=== PATIENT | male | born 1930 | race Caucasian/White ===

== ENCOUNTER 2017-01-08 09:25 | Inpatient (IN) | payer OTHER ==
[~2017-01-08] VITALS: Ht 170.2 cm; Wt 89.2 kg
[2017-01-08] VITALS (7 sets, daily range): BP systolic 88–120; BP diastolic 43–54
[~2017-01-08 09:25] MED LIST: ALBU2.5V5 NEB; ASPI81TA2 PO; DOXA8TAB59 PO; FINA5TAB4 PO; GLIP5TAB10 PO; INSU100I17 SQ; LISI2.5T PO; MEMA5TAB PO; METF10002 PO; MULTIVITAMIN; SIMV20TA3 PO; [UNRECOGNIZED DRUG - OTHER]; eucerin cream
--- NOTE | 2017-01-08 09:41 | EKG ---
[facility] [address] [place] [address] Test Date: 2017-01-08 Test Time: 09:33:48 Pat Name: RAMU GO Department: Room: Gender: M Agile Test Lead: : 1930 Requested By: IMAN BLACK Order Number: [id number] Reading MD: Measurements Intervals [place] Rate: 99 P: -34 [place]: 142 QRS: 37 QRSD: 124 T: 16 QT: 354 QTc: 460 Interpretive Statements SINUS ARRHYTHMIA RIGHT BUNDLE BRANCH BLOCK RVH WITH REPOLARIZATION ABNORMALITY ABNORMAL ECG RI6.01 No previous ECG available for comparison
[2017-01-08] MEDS ORDERED: IPRATRPIUM/ALBUTEROL 0.5/2.5MG 3 ML NEBU. NEB ONE (09:45)
[2017-01-08] MEDS ORDERED: IV NORMAL SALINE 1000ML BAG 1,000 ML IV ONE ×2 (09:45→10:15)
--- NOTE | 2017-01-08 09:46 | PHYS DOC ---
Past Medical History Past Medical History: Anxiety, Dementia, Depression, Diabetes-Type II, High Cholesterol, Hypertension, Other Additional Past Medical Histor: weakness, bronchospasm Past Surgical History: No Surgical History Alcohol Use: None Drug Use: None Adult General Chief Complaint Chief Complaint: WEAKNESS/GENERALIZED HPI HPI Patient is a 86 year old male who presents with was weakness. According to patient and the nursing facility we started fluid poorly last night and vomited once. This morning he could not feed himself and was dropping everything. The patient presents with johnson in his mouth. He denies any chest pain shortness of breath fevers or chills, or abdominal pain. He is satting on 4 L satting 95% and hypotensive with systolics in the 70s and 80s. According facility he is DNR. He has a past medical history of hypertension, diabetes type 2, previous stroke, depression, anxiety, and incontinence and peripheral vascular disease. According to family he's been having nausea vomiting and several episodes of diarrhea last night. Review of Systems Review of Systems Constitutional: Denies fever or chills [] Eyes: Denies change in visual acuity, redness, or eye pain [] HENT: Denies nasal congestion or sore throat [] Respiratory: Denies cough or shortness of breath [] Cardiovascular: No additional information not addressed in HPI [] GI: Denies abdominal pain, nausea, vomiting, bloody stools or diarrhea [] : Denies dysuria or hematuria [] Musculoskeletal: Denies back pain or joint pain [] Integument: Denies rash or skin lesions [] Neurologic: Denies headache, focal weakness or sensory changes [] Endocrine: Denies polyuria or polydipsia [] Current Medications Current Medications Current Medications Medications (Trade) Dose Ordered Sig/Christina Start Time Stop Time Status Last Admin Dose Admin Albuterol/ Ipratropium 3 ml 3 ml 1X ONCE 01/08/17 09:45 01/08/17 09:46 DC 01/08/17 09:53 3 ML Sodium Chloride (Iv Sodium Chloride 0.9% 1000ml Bag) 1,000 ml @ 1,000 mls/hr 1X ONCE 01/08/17 10:15 01/08/17 11:14 DC 01/08/17 10:09 1,000 MLS/HR Allergies Allergies Allergies Coded Allergies Type Severity Reaction Last Updated Verified No Known Drug Allergies 10/21/14 No Physical Exam Physical Exam Constitutional: Well developed, well nourished, no acute distress, non-toxic appearance. [] HENT: Normocephalic, atraumatic, bilateral external ears normal, oropharynx moist, no oral exudates, nose normal, but some johnson and posterior pharynx. [] Eyes: PERRLA, EOMI, conjunctiva normal, no discharge. [] Neck: Normal range of motion, no tenderness, supple, no stridor. [] Cardiovascular: Tachycardic with regular rhythm no murmur [] Lungs & Thorax: Coarse bilaterally with decreased breath sounds Abdomen: Bowel sounds normal, soft, no tenderness, no masses, no pulsatile masses. Ventral hernia noted Skin: Warm, dry, no erythema, no rash. [] Back: No tenderness, no CVA tenderness. [] Extremities: No tenderness, no cyanosis, no clubbing, ROM intact, no edema. [] Neurologic: Alert and interactive, normal motor function, normal sensory function, no focal deficits noted. [] Current Patient Data Vital Signs Vital Signs Date Time Temp Pulse Resp B/P Pulse Ox O2 Delivery O2 Flow Rate FiO2 01/08/17 11:12 99 112/56 94 Nasal Cannula 4 01/08/17 09:25 97.7 26 97.7 Lab Values Laboratory Tests Test 01/08/17 09:30 01/08/17 09:32 White Blood Count 17.5x10^3/uL (4.0-11.0) H Red Blood Count 4.93x10^6/uL (4.30-5.70) Hemoglobin 13.0g/dL (13.0-17.5) Hematocrit 39.9% (39.0-53.0) Mean Corpuscular Volume 81fL (79-100) Mean Corpuscular Hemoglobin 26pg (25-35) Mean Corpuscular Hemoglobin Concent 33g/dL (31-37) Red Cell Distribution Width 16.5% (11.5-14.5) H Platelet Count 268x10^3/uL (140-400) Neutrophils (%) (Auto) 95% (31-73) H Lymphocytes (%) (Auto) 1% (24-48) L Monocytes (%) (Auto) 5% (0-9) Eosinophils (%) (Auto) 0% (0-3) Basophils (%) (Auto) 0% (0-3) Neutrophils # (Auto) 16.6x10^3uL (1.8-7.7) H Lymphocytes # (Auto) 0.1x10^3/uL (1.0-4.8) L Monocytes # (Auto) 0.8x10^3/uL (0.0-1.1) Eosinophils # (Auto) 0.0x10^3/uL (0.0-0.7) Basophils # (Auto) 0.0x10^3/uL (0.0-0.2) Segmented Neutrophils % 66% (35-66) Band Neutrophils % 30% (0-9) H Lymphocytes % 1% (24-48) L Monocytes % 3% (0-10) Platelet Estimate Adequate (ADEQUATE) Anisocytosis Present Sodium Level 140mmol/L (136-145) Potassium Level 4.6mmol/L (3.5-5.1) Chloride Level 103mmol/L (98-107) Carbon Dioxide Level 22mmol/L (21-32) Anion Gap 15 (6-14) H Blood Urea Nitrogen 30mg/dL (8-26) H Creatinine 1.7mg/dL (0.7-1.3) H Estimated GFR (Cockcroft-Gault) 38.6 BUN/Creatinine Ratio 18 (6-20) Glucose Level 298mg/dL (70-99) H Lactic Acid Level 4.2mmol/L (0.4-2.0) *H Calcium Level 8.9mg/dL (8.5-10.1) Total Bilirubin 0.4mg/dL (0.2-1.0) Aspartate Amino Transferase (AST) 14U/L (15-37) L Alanine Aminotransferase (ALT) 19U/L (16-63) Alkaline Phosphatase 64U/L (46-116) Creatine Kinase 48U/L (39-308) Creatine Kinase MB (Mass) 0.9ng/mL (0.0-3.6) Creatine Kinase MB Relative Index % (0-4) Troponin I Quantitative < 0.017ng/mL (0.000-0.055) Total Protein 7.5g/dL (6.4-8.2) Albumin 3.1g/dL (3.4-5.0) L Albumin/Globulin Ratio 0.7 (1.0-1.7) L O2 Saturation 93% (92-99) Arterial Blood pH 7.32 (7.35-7.45) L Arterial Blood pCO2 at Patient Temp 35mmHg (35-46) Arterial Blood pO2 at Patient Temp 75mmHg (65-108) Arterial Blood HCO3 17mmol/L (21-28) L Arterial Blood Base Excess -8mmol/L (-3-3) L FiO2 36.0 Laboratory Tests 01/08/17 09:30 Laboratory Tests 01/08/17 09:30 EKG EKG EKG shows sinus beats per minute with right bundle branch morphology, no ST elevations appreciated, normal axis, QT C4 60 ms, as interpreted by me. Radiology/Procedures Radiology/Procedures [facility] [address] [place] [address] IMAGING REPORT Signed PATIENT: RAMU GO ACCOUNT: [id number] : 1930 LOCATION: ER AGE: 86 SEX: M EXAM STATUS: PRE ER ORD. PHYSICIAN: IMAN BLACK MD REASON: hypoxia PROCEDURE: PORTABLE CHEST 1V Portable chest, 01/08/2017: History: Hypoxia, low blood pressure Comparison is made to a study from 10/23/2014. The heart is at the upper limits of normal in size. There is calcific plaquing and tortuosity of the thoracic aorta. The pulmonary vascularity now appears to be congested. There is scarring over the pulmonary apices. There appear to be a few scattered parenchymal scars. A density in the left lateral costophrenic angle is probably due to scarring and/or a prominent epicardial fat pad. A small amount of pleural fluid is less likely. The bony structures are demineralized. IMPRESSION: 1. Borderline cardiomegaly and aortic atherosclerosis. 2. Mild vascular congestion DICTATED and SIGNED BY: ANALIA ABREU MD DATE: 01/08/17 0958 CC: MICHEL TOVAR; IMAN BLACK MD ~ Impressions: Hypotension Dehydration vomiting diarrhea Course & Med Decision Making Course & Med Decision Making Pertinent Labs and Imaging studies reviewed. (See chart for details) You presented with systolic blood pressures in the 70s. He received 2 L normal saline we does have an elevated lactic acid and mild acidosis. We will repeat these labs and admit to . Dr. Villarreal is requesting ID consultation. Patient is in stable condition this time. Admitted to the floor. I spoke with the patient and family and they have agreed to be DNR. Dragon Disclaimer Dragon Disclaimer This electronic medical record was generated, in whole or in part, using a voice recognition dictation system. Departure Departure Referrals: MICHEL TOVAR (PCP) IMAN BLACK MD Jan 08, 2017 09:46
--- NOTE | 2017-01-08 10:04 | RAD ---
Portable chest, 01/08/2017: History: Hypoxia, low blood pressure Comparison is made to a study from 10/23/2014. The heart is at the upper limits of normal in size. There is calcific plaquing and tortuosity of the thoracic aorta. The pulmonary vascularity now appears to be congested. There is scarring over the pulmonary apices. There appear to be a few scattered parenchymal scars. A density in the left lateral costophrenic angle is probably due to scarring and/or a prominent epicardial fat pad. A small amount of pleural fluid is less likely. The bony structures are demineralized. IMPRESSION: 1. Borderline cardiomegaly and aortic atherosclerosis. 2. Mild vascular congestion
[2017-01-08 10:14] LABS: CALCIUM 8.9 mg/dL (8.5-10.1); CREATININE 1.7 mg/dL (0.7-1.3); GFR 38.6; POTASSIUM 4.6 mmol/L (3.5-5.1)
[2017-01-08 10:20] LABS: ALBUMIN 3.1 g/dL (3.4-5.0); ALBUMIN/GLOBULIN RATIO 0.7 (1.0-1.7); TOTAL BILIRUBIN 0.4 mg/dL (0.2-1.0); TOTAL PROTEIN 7.5 g/dL (6.4-8.2)
[2017-01-08 10:22] LABS: BASO % 0 % (0-3); CKMB MASS 0.9 ng/mL (0.0-3.6); CREATINE KINASE 48 U/L (39-308); EOS % 0 % (0-3); HEMATOCRIT 39.9 % (39.0-53.0); LYMPH # 0.1 x10^3/uL (1.0-4.8); LYMPH % 1 % (24-48); MEAN CORPUSCULAR HEMOGLOBIN 26 pg (25-35); MEAN CORPUSCULAR HGB CONC 33 g/dL (31-37); MEAN CORPUSCULAR VOLUME 81 fL (79-100); MONO % 5 % (0-9); NEUT % 95 % (31-73); PLATELET COUNT 268 x10^3/uL (140-400); RED BLOOD COUNT 4.93 x10^6/uL (4.30-5.70); RED CELL DISTRIBUTION WIDTH 16.5 % (11.5-14.5); WHITE BLOOD COUNT 17.5 x10^3/uL (4.0-11.0)
[2017-01-08 10:45] LABS: HCO3 ABG 17 mmol/L (21-28); PCO2 ABG 35 mmHg (35-46); PH ABG 7.32 (7.35-7.45); PO2 ABG 75 mmHg (65-108); SAT O2 ABG 93 % (92-99)
[2017-01-08] MEDS ORDERED: ONDANSETRON PF 4 MG/2 ML VIAL. IV PRN (12:15)
[2017-01-08 12:20] LABS: BILIRUBIN,URINE NEGATIVE (NEG); GLUCOSE,URINE 250 mg/dL (NEG); NITRITE,URINE POSITIVE (NEG); PROTEIN,URINE 30 mg/dL (NEG-TRACE); UROBILINOGEN,URINE 0.2 mg/dL (0.2 mg/dL)
[2017-01-08] MEDS ORDERED: VANCOMYCIN 1.25 GM in IV NORMAL SALINE 250ML 250 ML IV ONE (12:30)
--- NOTE | 2017-01-08 12:31 | PDOC ---
Infectious Disease Note Vital Sign Vital Signs Vital Signs Date Time Temp Pulse Resp B/P Pulse Ox O2 Delivery O2 Flow Rate FiO2 01/08/17 11:36 101 112/70 90 Nasal Cannula 4 01/08/17 09:25 97.7 26 97.7 Labs Lab Laboratory Tests Test 01/08/17 09:30 01/08/17 09:32 White Blood Count 17.5x10^3/uL (4.0-11.0) Red Blood Count 4.93x10^6/uL (4.30-5.70) Hemoglobin 13.0g/dL (13.0-17.5) Hematocrit 39.9% (39.0-53.0) Mean Corpuscular Volume 81fL (79-100) Mean Corpuscular Hemoglobin 26pg (25-35) Mean Corpuscular Hemoglobin Concent 33g/dL (31-37) Red Cell Distribution Width 16.5% (11.5-14.5) Platelet Count 268x10^3/uL (140-400) Neutrophils (%) (Auto) 95% (31-73) Lymphocytes (%) (Auto) 1% (24-48) Monocytes (%) (Auto) 5% (0-9) Eosinophils (%) (Auto) 0% (0-3) Basophils (%) (Auto) 0% (0-3) Neutrophils # (Auto) 16.6x10^3uL (1.8-7.7) Lymphocytes # (Auto) 0.1x10^3/uL (1.0-4.8) Monocytes # (Auto) 0.8x10^3/uL (0.0-1.1) Eosinophils # (Auto) 0.0x10^3/uL (0.0-0.7) Basophils # (Auto) 0.0x10^3/uL (0.0-0.2) Sodium Level 140mmol/L (136-145) Potassium Level 4.6mmol/L (3.5-5.1) Chloride Level 103mmol/L (98-107) Carbon Dioxide Level 22mmol/L (21-32) Anion Gap 15 (6-14) Blood Urea Nitrogen 30mg/dL (8-26) Creatinine 1.7mg/dL (0.7-1.3) Estimated GFR (Cockcroft-Gault) 38.6 BUN/Creatinine Ratio 18 (6-20) Glucose Level 298mg/dL (70-99) Lactic Acid Level 4.2mmol/L (0.4-2.0) Calcium Level 8.9mg/dL (8.5-10.1) Total Bilirubin 0.4mg/dL (0.2-1.0) Aspartate Amino Transf (AST/SGOT) 14U/L (15-37) Alanine Aminotransferase (ALT/SGPT) 19U/L (16-63) Alkaline Phosphatase 64U/L (46-116) Creatine Kinase 48U/L (39-308) Creatine Kinase MB (Mass) 0.9ng/mL (0.0-3.6) Creatine Kinase MB Relative Index % (0-4) Total Protein 7.5g/dL (6.4-8.2) Albumin 3.1g/dL (3.4-5.0) Albumin/Globulin Ratio 0.7 (1.0-1.7) O2 Saturation 93% (92-99) Arterial Blood pH 7.32 (7.35-7.45) Arterial Blood pCO2 at Patient Temp 35mmHg (35-46) Arterial Blood pO2 at Patient Temp 75mmHg (65-108) Arterial Blood HCO3 17mmol/L (21-28) Arterial Blood Base Excess -8mmol/L (-3-3) FiO2 36.0 Objective Assessment N/V/D, gastroenteritis Leukocytosis Lactic acidosis/sepsis Dementia Encephalopathy ADELE Plan Plan of Care fluids vanc x 1, zosyn check cultures supportive care d/w family OLY CLARK MD Jan 08, 2017 12:31
[2017-01-08 12:36] LABS: BACTERIA,URINE MODERATE /HPF (0-FEW); RBC,URINE OCC /HPF (0-2); WBC,URINE 20-40 /HPF (0-4)
[2017-01-08 12:58] LABS: CALCIUM 8.1 mg/dL (8.5-10.1); CREATININE 1.9 mg/dL (0.7-1.3); GFR 33.9; POTASSIUM 4.8 mmol/L (3.5-5.1)
[2017-01-08 13:11] LABS: ANISOCYTOSIS PRESENT; PLT ESTIMATE ADEQUATE (ADEQUATE)
[2017-01-08] MEDS: PIPERACILLIN/TAZOBACTAM 3.375 GM in IV NORMAL SALINE 50ML 50 ML IV SCH ×3 (16:32→23:24)
[2017-01-08] MEDS ORDERED: MEMA21CA PO (17:03)
[2017-01-08] MEDS ORDERED: ACET325T9 PO (17:03)
[2017-01-08] MEDS ORDERED: IPRA3AMP NEB (17:03)
[2017-01-08] MEDS ORDERED: MULT-245 PO (17:03)
[2017-01-08] MEDS ORDERED: ATOR10TA60 PO (17:03)
[2017-01-08] MEDS ORDERED: LORA10TA68 PO (17:03)
[2017-01-08] MEDS ORDERED: INSU100V13 SQ (17:03)
[2017-01-08] MEDS ORDERED: CLOP75TA PO (17:03)
[2017-01-08] MEDS ORDERED: SERT25TA4 PO (17:03)
[2017-01-08] MEDS ORDERED: ASPI-482 PO (17:03)
--- NOTE | 2017-01-08 17:32 | ACF ---
Admission Forms Criteria DEHYDRATION Clinical Indications for Admission to Inpatient Care (Place 'X' for any and all applicable criteria): Admission is indicated for ANY ONE of the following (1)(2)(3)(4)(5): [X]I. Inpatient admission required rather than observation care (see Dehydration: Observation Care guideline as appropriate) because of ANY ONE of the following: [ ]a) Vomiting that is severe or persistent [ ]b) Severe electrolyte abnormalities requiring inpatient care [ ]c) Hemodynamic instability [ ]d) IV fluid to replace significant ongoing losses (greater than 3 L/m2 per day (10) (11) [ ]e) Parenteral nutrition regimen that must be implemented on inpatient basis [X]f) Other condition,treatment or monitoring requiring inpatient admission [ ]II. Serious cause for dehydration requiring acute hospitalization (eg, bowel obstruction, increased intracranial pressure, infectious cause) Extended stay beyond goal length of stay may be needed for(1)(3 )(4)(17): [ ]a) Chronic severe dehydration [ ]b) Persistent vital sign changes, severe electrolyte imbalance, or diagnosed cause of dehydration that requires continued hospitalization (eg, bowel obstruction, increased intracranial pressure) [ ]c) Older patients (65 years or older) [ ]d) Severe comorbid illness (eg, renal failure, heart failure, poorly controlled diabetes) The original [employer] content created by [employer] has been revised. The portions of the content which have been revised are identified through the use of italic text or in bold, and [facility] has neither reviewed nor approved the modified material. All other unmodified content is copyright [employer]. Please see references footnoted in the original [employer] edition 2016 Admission Criteria Met?: Yes VAISHALI IVAN Jan 08, 2017 17:32
[2017-01-08] MEDS ORDERED: ACETAMINOPHEN 325 MG TABLET. PO PRN (17:45)
[2017-01-08] MEDS ORDERED: ALBUTEROL SULFATE 2.5 MG/3 ML NEBU. NEB PRN (17:45)
[2017-01-08] MEDS ORDERED: DEXTROSE 50% 25 GM / 50ML DISP.SYRIN. IV PRN (17:45)
[2017-01-08] MEDS: INSULIN ASPART 300 UNITS/3 ML INSULN.PEN SQ SCH (18:53)
[2017-01-08] MEDS: ATORVASTATIN CALCIUM 10 MG TABLET. PO SCH (21:24)
[2017-01-08] MEDS: MEMANTINE 10 MG TABLET. PO SCH (21:24)
[2017-01-08] MEDS: INSULIN DETEMIR 300 UNITS/3 ML INSULN.PEN. SQ SCH (21:32)
--- NOTE | 2017-01-08 23:29 | CONS ---
DATE OF CONSULTATION: 01/08/2017 REQUESTING PHYSICIAN: Dr. Gonzalez. REASON FOR CONSULTATION: Sepsis. HISTORY OF PRESENT ILLNESS: This is an 86-year-old gentleman, who is a [facility] resident was mild dementia, who is not able to walk from stroke, who presented with nausea, vomiting and diarrhea of 1-day duration. The patient has been very weak, lethargic, has change in mental status, has leukocytosis and lactic acid up to 4.2, BUN 30, creatinine 1.7. The patient has been in the ER and I was called by ER physician for a consult. I came down to see in the ER the, family at the bedside, and son. No other information available other than nausea, vomiting and diarrhea. There was no fever noted and normally he sharp ____ right now he is not sharp. PAST MEDICAL HISTORY: Positive for diabetes, hypertension, hyperlipidemia, anxiety, depression, CVA with left-sided weakness and listed as dementia, although family denies him having dementia. SOCIAL HISTORY: Negative for smoking, alcohol or illicit drug use. ALLERGIES: No known drug allergies. CURRENT MEDICATIONS: Reviewed. The patient has not received any antibiotics. REVIEW OF SYSTEMS: As per HPI, all other systems reviewed are negative. PHYSICAL EXAMINATION: GENERAL: Alert, but not oriented gentleman, not in distress. VITAL SIGNS: Stable. The patient does have a blood pressure of 76 systolic. HEENT: NAD. NECK: Supple, no JVP, no lymphadenopathy. LUNGS: Clear. HEART: S1, S2 regular. ABDOMEN: Benign. EXTREMITIES: No edema or cyanosis. SKIN: Unremarkable. NEUROLOGIC: The patient is neurologically awake, but not appropriate and he has left-sided weakness. LABORATORY DATA: White count is 17.5, BUN 30, creatinine 1.7. Lactic acid 4.2. Urinalysis is pending. Chest x-ray is not showing any acute changes right now. IMPRESSION: 1. Sepsis. 2. Nausea, vomiting, diarrhea. 3. Lactic acidosis. 4. Leukocytosis. 5. Encephalopathy. 6. Dementia. 7. Acute kidney injury. PLAN: Recommend fluids, vancomycin x 1, Zosyn. We will check cultures. Supportive care. We will check UA with NETWORK SYSTEMS INTEGRATOR if indicated. Discussion with family done. Thank you very much, Dr. Gonzalez, for giving me the opportunity to participate in this patient's care. OLY CLARK MD DR: GARY/jose JOB#: [id number] / [id number]
[2017-01-09] VITALS (8 sets, daily range): BP systolic 99–150; BP diastolic 36–63
[2017-01-09 03:51] LABS: ALBUMIN 2.7 g/dL (3.4-5.0); ALBUMIN/GLOBULIN RATIO 0.7 (1.0-1.7); CALCIUM 7.8 mg/dL (8.5-10.1); CREATININE 1.8 mg/dL (0.7-1.3); GFR 36.1; POTASSIUM 4.6 mmol/L (3.5-5.1); TOTAL BILIRUBIN 0.4 mg/dL (0.2-1.0); TOTAL PROTEIN 6.4 g/dL (6.4-8.2)
[2017-01-09 04:02] LABS: BASO # 0.1 x10^3/uL (0.0-0.2); BASO % 0 % (0-3); EOS % 0 % (0-3); HEMATOCRIT 33.7 % (39.0-53.0); HEMOGLOBIN 10.6 g/dL (13.0-17.5); LYMPH # 0.4 x10^3/uL (1.0-4.8); LYMPH % 3 % (24-48); MEAN CORPUSCULAR HEMOGLOBIN 26 pg (25-35); MEAN CORPUSCULAR HGB CONC 31 g/dL (31-37); MEAN CORPUSCULAR VOLUME 83 fL (79-100); MONO % 8 % (0-9); NEUT % 89 % (31-73); PLATELET COUNT 233 x10^3/uL (140-400); RED BLOOD COUNT 4.05 x10^6/uL (4.30-5.70); RED CELL DISTRIBUTION WIDTH 16.8 % (11.5-14.5); WHITE BLOOD COUNT 12.2 x10^3/uL (4.0-11.0)
[2017-01-09] MEDS: PIPERACILLIN/TAZOBACTAM 3.375 GM in IV NORMAL SALINE 50ML 50 ML IV SCH ×3 (05:59→18:42)
[2017-01-09] MEDS ORDERED: METFORMIN 1,000 MG TABLET PO SCH (08:00)
[2017-01-09] MEDS: INSULIN ASPART 300 UNITS/3 ML INSULN.PEN SQ SCH ×3 (08:00→18:46)
[2017-01-09] MEDS ORDERED: CLOPIDOGREL BISULFATE 75 MG TABLET PO SCH (09:00)
[2017-01-09] MEDS: CETIRIZINE HCL 10 MG TABLET. PO SCH (10:23)
[2017-01-09] MEDS: FINASTERIDE 5 MG TABLET PO SCH (10:23)
[2017-01-09] MEDS: SERTRALINE 25 MG TABLET. PO SCH (10:24)
[2017-01-09] MEDS: ASPIRIN 81 MG TAB.CHEW PO SCH (10:24)
[2017-01-09] MEDS: MEMANTINE 10 MG TABLET. PO SCH ×2 (10:25→20:49)
--- NOTE | 2017-01-09 11:30 | PDOC ---
Infectious Disease Note Subjective Subjective Feeling ok wants the door left open, Denies pain Fever Tmax 100.7 ROS ROS GEN: Denies chills, sweats CV: Denies chest pain RESP: Denies shortness of air, cough GI: Denies n/v/d NEURO: Denies confusion, dizziness Vital Sign Vital Signs Vital Signs Date Time Temp Pulse Resp B/P Pulse Ox O2 Delivery O2 Flow Rate FiO2 01/09/17 07:00 97.9 76 18 114/52 95 Nasal Cannula 4.0 97.9 Physical Exam PHYSICAL EXAM GENERAL: Alert, in bed, NAD HEENT: OC/OP dry NECK: Supple LUNGS: Clear HEART: S1S2, no gallop, no murmur ABD: Soft, NT, BS present EXT: No edema, no cyanosis MAINTENANCE MILLWRIGHT: Alert, oriented to place, follows commands SKIN: No rash IV: ok Labs Lab Laboratory Tests Test 01/08/17 12:00 01/08/17 12:40 01/08/17 16:22 01/08/17 17:16 Urine Collection Type U cath Urine Color Yellow Urine Clarity Cloudy Urine pH 6.0 Urine Specific [place] 1.015 Urine Protein 30mg/dL (NEG-TRACE) Urine Glucose (UA) 250mg/dL (NEG) Urine Ketones (Stick) 40mg/dL (NEG) Urine Blood Small (NEG) Urine Nitrite Positive (NEG) Urine Bilirubin Negative (NEG) Urine Urobilinogen Dipstick 0.2mg/dL (0.2 mg/dL) Urine Leukocyte Esterase Large (NEG) Urine RBC Occ/HPF (0-2) Urine WBC 20-40/HPF (0-4) Urine Squamous Epithelial Cells None/LPF Urine Bacteria Moderate/HPF (0-FEW) Urine Hyaline Casts Occasional/HPF Sodium Level 138mmol/L (136-145) Potassium Level 4.8mmol/L (3.5-5.1) Chloride Level 105mmol/L (98-107) Carbon Dioxide Level 19mmol/L (21-32) Anion Gap 14 (6-14) Blood Urea Nitrogen 32mg/dL (8-26) Creatinine 1.9mg/dL (0.7-1.3) Estimated GFR (Cockcroft-Gault) 33.9 Glucose Level 282mg/dL (70-99) Lactic Acid Level 5.4mmol/L (0.4-2.0) 3.6mmol/L (0.4-2.0) Calcium Level 8.1mg/dL (8.5-10.1) Glucose (Fingerstick) 223mg/dL (70-99) Test 01/08/17 17:40 01/08/17 20:30 01/09/17 00:30 01/09/17 02:00 Troponin I Quantitative < 0.017ng/mL (0.000-0.055) Glucose (Fingerstick) 233mg/dL (70-99) Sodium Level 141mmol/L (136-145) Potassium Level 4.6mmol/L (3.5-5.1) Chloride Level 106mmol/L (98-107) Carbon Dioxide Level 22mmol/L (21-32) Anion Gap 13 (6-14) Blood Urea Nitrogen 37mg/dL (8-26) Creatinine 1.8mg/dL (0.7-1.3) Estimated GFR (Cockcroft-Gault) 36.1 BUN/Creatinine Ratio 21 (6-20) Glucose Level 228mg/dL (70-99) Calcium Level 7.8mg/dL (8.5-10.1) Total Bilirubin 0.4mg/dL (0.2-1.0) Aspartate Amino Transf (AST/SGOT) 16U/L (15-37) Alanine Aminotransferase (ALT/SGPT) 18U/L (16-63) Alkaline Phosphatase 49U/L (46-116) Total Protein 6.4g/dL (6.4-8.2) Albumin 2.7g/dL (3.4-5.0) Albumin/Globulin Ratio 0.7 (1.0-1.7) White Blood Count 12.2x10^3/uL (4.0-11.0) Red Blood Count 4.05x10^6/uL (4.30-5.70) Hemoglobin 10.6g/dL (13.0-17.5) Hematocrit 33.7% (39.0-53.0) Mean Corpuscular Volume 83fL (79-100) Mean Corpuscular Hemoglobin 26pg (25-35) Mean Corpuscular Hemoglobin Concent 31g/dL (31-37) Red Cell Distribution Width 16.8% (11.5-14.5) Platelet Count 233x10^3/uL (140-400) Neutrophils (%) (Auto) 89% (31-73) Lymphocytes (%) (Auto) 3% (24-48) Monocytes (%) (Auto) 8% (0-9) Eosinophils (%) (Auto) 0% (0-3) Basophils (%) (Auto) 0% (0-3) Neutrophils # (Auto) 10.8x10^3uL (1.8-7.7) Lymphocytes # (Auto) 0.4x10^3/uL (1.0-4.8) Monocytes # (Auto) 1.0x10^3/uL (0.0-1.1) Eosinophils # (Auto) 0.0x10^3/uL (0.0-0.7) Basophils # (Auto) 0.1x10^3/uL (0.0-0.2) Test 01/09/17 03:00 01/09/17 11:00 Troponin I Quantitative < 0.017ng/mL (0.000-0.055) Glucose (Fingerstick) 163mg/dL (70-99) Micro BLOOD CULTURE Preliminary NO GROWTH AFTER 1 DAY Objective Assessment N/V/D, gastroenteritis Leukocytosis Lactic acidosis/sepsis Dementia Encephalopathy ADELE Plan Plan of Care Bettyrivasdidier manning x 1, 01/08 UC in progress Patient seen and examined. Chart reviewed in detail. 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 Encephalopathy is better. GRACY DEVI APRN Jan 09, 2017 11:30 ZARINA CARR MD Jan 09, 2017 16:12
--- NOTE | 2017-01-09 12:10 | PDOC ---
Provider Note Provider Note [id number] LAITH ASH MD Jan 09, 2017 12:10
[2017-01-09] MEDS: POTASSIUM CL 20MEQ D5-0.45NACL 1,000 ML IV SCH (13:04)
[2017-01-09] MEDS: ATORVASTATIN CALCIUM 10 MG TABLET. PO SCH (20:49)
[2017-01-09] MEDS: INSULIN DETEMIR 300 UNITS/3 ML INSULN.PEN. SQ SCH (20:55)
[2017-01-10] MEDS: POTASSIUM CL 20MEQ D5-0.45NACL 1,000 ML IV SCH ×3 (00:14→23:01)
[2017-01-10] MEDS: PIPERACILLIN/TAZOBACTAM 3.375 GM in IV NORMAL SALINE 50ML 50 ML IV SCH ×5 (00:16→23:05)
[2017-01-10 03:21] VITALS: BP 124/62
[2017-01-10 07:00] VITALS: BP 128/69
[2017-01-10] MEDS: INSULIN ASPART 300 UNITS/3 ML INSULN.PEN SQ SCH ×3 (08:00→18:23)
[2017-01-10 08:16] LABS: CALCIUM 7.2 mg/dL (8.5-10.1); CREATININE 1.3 mg/dL (0.7-1.3); GFR 52.6
[2017-01-10 08:18] LABS: POTASSIUM 4.1 mmol/L (3.5-5.1)
[2017-01-10] MEDS: CETIRIZINE HCL 10 MG TABLET. PO SCH (08:45)
[2017-01-10] MEDS: ASPIRIN 81 MG TAB.CHEW PO SCH (08:45)
[2017-01-10] MEDS: FINASTERIDE 5 MG TABLET PO SCH (08:45)
[2017-01-10] MEDS: SERTRALINE 25 MG TABLET. PO SCH (08:45)
[2017-01-10] MEDS: MEMANTINE 10 MG TABLET. PO SCH ×2 (08:45→21:13)
[2017-01-10] MEDS ORDERED: INSULIN DETEMIR 300 UNITS/3 ML INSULN.PEN. SQ ONE (09:00)
--- NOTE | 2017-01-10 09:06 | PDOC ---
Provider Note Provider Note day 2 mitch jade neg, uc pending- no temp, more alert, bp better- a1c 8, will inc levemir 20 %- cont same , reduce iv fluid, reat down to 1.3 so will resume metformion, but having some diarrhea , so c diff sent LAITH ASH MD Jan 10, 2017 09:06
[2017-01-10 11:00] VITALS: BP 128/72
--- NOTE | 2017-01-10 12:08 | PDOC ---
Infectious Disease Note Subjective Subjective Feels good Denies pain or pruritus No fever last 24 hours Loose stools visiting, no concerns voiced. Says he is normally has some redness to skin ROS ROS GEN: Denies chills, sweats CV: Denies chest pain RESP: Denies shortness of air, cough GI: Denies n/v Vital Sign Vital Signs Vital Signs Date Time Temp Pulse Resp B/P Pulse Ox O2 Delivery O2 Flow Rate FiO2 01/10/17 08:00 Nasal Cannula 4.0 01/10/17 03:21 98.2 58 20 124/62 98 98.2 Physical Exam PHYSICAL EXAM GENERAL: Propped up in bed, alert, smiling HEENT: OC/OP dry NECK: Supple LUNGS: Clear HEART: S1S2, no gallop, no murmur ABD: Obese, soft, NT, BS present EXT: No edema, no cyanosis HOG PUSHER: Alert, oriented to self and family, follows commands SKIN: Mild redness over top of chest and arms Labs Lab Laboratory Tests Test 01/09/17 16:44 01/09/17 20:38 01/10/17 07:10 01/10/17 07:25 Glucose (Fingerstick) 163mg/dL (70-99) 191mg/dL (70-99) 200mg/dL (70-99) Sodium Level 143mmol/L (136-145) Potassium Level 4.1mmol/L (3.5-5.1) Chloride Level 109mmol/L (98-107) Carbon Dioxide Level 18mmol/L (21-32) Anion Gap 16 (6-14) Blood Urea Nitrogen 22mg/dL (8-26) Creatinine 1.3mg/dL (0.7-1.3) Estimated GFR (Cockcroft-Gault) 52.6 Glucose Level 231mg/dL (70-99) Calcium Level 7.2mg/dL (8.5-10.1) Test 01/10/17 10:13 Glucose (Fingerstick) 209mg/dL (70-99) Micro BLOOD CULTURE Preliminary NO GROWTH AFTER 1 DAY Objective Assessment N/V/D, gastroenteritis Leukocytosis, better Lactic acidosis/sepsis Dementia Encephalopathy, improved ADELE, improved Plan Plan of Care Nilson manning x 1, 01/08 UC in progress C. diff pcr pending D/w Patient seen and examined. Chart reviewed. Case discussed with HEAD OF MERCHANDISE BUYING. CT result viewed. Agree with above plan. CoNS in urine- Removal of rodriguez Continue Zosyn ,WBC improving patient clinically better GRACY DEVI APRN Jan 10, 2017 12:08 ZARINA CARR MD Jan 10, 2017 15:57
--- NOTE | 2017-01-10 12:25 | HP ---
ADMIT DATE: 01/08/2017 CHIEF COMPLAINT: Weakness. HISTORY OF PRESENT ILLNESS: An 86-year-old white male with a history of insulin-dependent diabetes and some degree of dementia and coronary artery disease, who presented with fever and confusion. He was found to have evidence of urinary tract infection and he has been given vancomycin and Zosyn at this point. He has no other specific complaints, and states that he started feeling ill about 2 days ago, but denies prior urinary tract infections. PAST MEDICAL HISTORY: Old records are not available. MEDICATIONS: He is on multiple medications, including insulin. ALLERGIES: No allergies are noted. He is a DNR. SOCIAL HISTORY: He lives in a custodial. He is . His is here. He is a nonsmoker and nondrinker. FAMILY HISTORY: Unremarkable. REVIEW OF SYSTEMS: No other problems. OBJECTIVE: ENT: Multiple thick keratotic lesions on the scalp, otherwise generally unremarkable. NECK: Revealed no carotid bruits, nodes, or masses. LUNGS: Clear with decreased breath sounds. No tachypnea is noted. CARDIOVASCULAR: Regular rate. No irregular beat or murmur. ABDOMEN: Soft, benign, and nontender. No masses are felt. No bladder enlargement is noted. EXTREMITIES: He has mildly decreased pedal pulses. His feet are warm. No edema is noted. Nail beds are pink. NEUROLOGIC: He moves poorly. He is alert and seems reasonable, responsive, and oriented to appropriate questions. No focal findings. No tremor. ASSESSMENT: Fever and confusion consistent with systemic inflammatory response syndrome from the urinary tract infection. He has had insulin-dependent diabetes and dementia, and history of coronary artery disease as well. PLAN: He is a DNR. We will stop Plavix - it is greater risk than benefit at this point regarding GI bleeding risk. Continue vancomycin and Zosyn, pending urine cultures, and we will adjust insulin levels accordingly. LAITH ASH MD DR: CLYDE/jose JOB#: [id number] / [id number]
[2017-01-10 15:00] VITALS: BP 136/70
[2017-01-10] MEDS: METFORMIN 1,000 MG TABLET PO SCH (18:14)
[2017-01-10 19:00] VITALS: BP 115/62
[2017-01-10] MEDS: ATORVASTATIN CALCIUM 10 MG TABLET. PO SCH (21:13)
[2017-01-10] MEDS: INSULIN DETEMIR 300 UNITS/3 ML INSULN.PEN. SQ SCH (21:20)
[2017-01-10 23:00] VITALS: BP 133/72
[2017-01-11 03:11] VITALS: BP 135/71
[2017-01-11] MEDS: PIPERACILLIN/TAZOBACTAM 3.375 GM in IV NORMAL SALINE 50ML 50 ML IV SCH (05:51)
[2017-01-11 07:00] VITALS: BP 140/72
--- NOTE | 2017-01-11 08:25 | PDOC ---
GENERAL General: vss and afebrile. c.diff negative. awake and alert and voices no complaints. chest with occasional rhonchi. abdomen benign. coag neg staph on urine culture and blood cultures negative to date. overall much improved. continue same. ID input appreciated. Problems: VITAL SIGNS Vital Signs: Vital Signs Date Time Temp Pulse Resp B/P Pulse Ox O2 Delivery O2 Flow Rate FiO2 01/11/17 07:00 97.8 82 22 140/72 100 Nasal Cannula 4.0 97.8 I & O I & O Intake and Output 01/11/17 07:00 Intake Total 1160 ml Output Total 3 ml Balance 1157 ml Intake Oral 1160 ml Stool Total 3 ml # Voids 5 # Bowel Movements 1 ALLERGIES Allergies: Allergies Coded Allergies Type Severity Reaction Last Updated Verified No Known Drug Allergies 10/21/14 No MEDS Medications: Current Medications Medications (Trade) Dose Ordered Sig/Christina Start Time Stop Time Status Last Admin Dose Admin Acetaminophen (Tylenol) 325 mg PRN Q4HRS PRN 01/08/17 17:45 Albuterol Sulfate (Ventolin Neb Soln) 2.5 mg PRN Q4HRS PRN 01/08/17 17:45 Albuterol/ Ipratropium 3 ml 3 ml 1X ONCE 01/08/17 09:45 01/08/17 09:46 DC 01/08/17 09:53 3 ML Aspirin (Children'S Aspirin) 81 mg DAILY 01/09/17 09:00 01/10/17 08:45 81 MG Atorvastatin Calcium (Lipitor) 10 mg HS 01/08/17 21:00 01/10/17 21:13 10 MG Cetirizine HCl (Zyrtec) 10 mg DAILY 01/09/17 09:00 01/10/17 08:45 10 MG Clopidogrel Bisulfate (Plavix) 75 mg DAILY 01/09/17 09:00 01/09/17 12:08 DC 01/09/17 10:24 75 MG Dextrose 12.5 gm PRN Q15MIN PRN 01/08/17 17:45 Finasteride (Proscar) 5 mg DAILY 01/09/17 09:00 01/10/17 08:45 5 MG Insulin Aspart (Novolog) 0-5 UNITS TIDWMEALS 01/08/17 18:30 01/10/17 18:23 2 UNITS Insulin Detemir (Levemir) 4 units 1X ONCE 01/10/17 09:00 01/10/17 09:03 DC 01/10/17 12:45 4 UNITS Memantine 10 mg 10 mg BID 01/08/17 21:00 01/10/17 21:13 10 MG Metformin HCl (Glucophage) 1,000 mg BIDWMEALS 01/10/17 17:00 01/10/17 18:14 1,000 MG Ondansetron HCl 4 mg 4 mg PRN Q8HRS PRN 01/08/17 12:15 01/09/17 12:14 DC Piperacillin Sod/ Tazobactam Sod/ Sodium Chloride (Zosyn/Iv Sodium Chloride 0.9% 50ml) 50 ml @ 100 mls/hr Q6HRS 01/08/17 13:00 01/11/17 05:51 100 MLS/HR Potassium Chloride/Dextrose/ Sod Cl (KCl 20 Meq In D5W-1/2 NS) 1,000 ml @ 75 mls/hr [id number] 01/09/17 12:30 01/10/17 23:01 75 MLS/HR Sertraline HCl (Zoloft) 25 mg DAILY 01/09/17 09:00 01/10/17 08:45 25 MG Sodium Chloride (Iv Sodium Chloride 0.9% 1000ml Bag) 1,000 ml @ 1,000 mls/hr 1X ONCE 01/08/17 10:15 01/08/17 11:14 DC 01/08/17 10:09 1,000 MLS/HR Vancomycin HCl 1.25 gm/Sodium Chloride 250 ml @ 166.667 mls/hr 1X ONCE 01/08/17 12:30 01/08/17 13:59 DC 01/08/17 14:48 166.667 MLS/HR LAB Lab: Laboratory Tests Test 01/10/17 10:13 01/10/17 17:25 01/10/17 20:13 Glucose (Fingerstick) 209mg/dL (70-99) 179mg/dL (70-99) 167mg/dL (70-99) AYESHA BOWERS MD Jan 11, 2017 08:25
[2017-01-11] MEDS: FINASTERIDE 5 MG TABLET PO SCH (08:35)
[2017-01-11] MEDS: METFORMIN 1,000 MG TABLET PO SCH ×2 (08:35→17:23)
[2017-01-11] MEDS: SERTRALINE 25 MG TABLET. PO SCH (08:35)
[2017-01-11] MEDS: ASPIRIN 81 MG TAB.CHEW PO SCH (08:35)
[2017-01-11] MEDS: MEMANTINE 10 MG TABLET. PO SCH ×2 (08:35→21:21)
[2017-01-11] MEDS: INSULIN ASPART 300 UNITS/3 ML INSULN.PEN SQ SCH ×3 (08:44→17:00)
[2017-01-11] MEDS: CETIRIZINE HCL 10 MG TABLET. PO SCH (09:21)
--- NOTE | 2017-01-11 09:24 | PDOC ---
Infectious Disease Note Subjective Subjective feeling good, awake and appropriate ROS ROS GEN: Denies fevers, chills, sweats HEENT: Denies blurred vision, sore throat CV: Denies chest pain RESP: Denies shortness of air, cough GI: Denies n/v/d NEURO: Denies confusion, dizziness MSK: Denies weakness, joint pain/swelling Vital Sign Vital Signs Vital Signs Date Time Temp Pulse Resp B/P Pulse Ox O2 Delivery O2 Flow Rate FiO2 01/11/17 07:00 97.8 82 22 140/72 100 Nasal Cannula 4.0 97.8 Physical Exam PHYSICAL EXAM GENERAL: NAD, Alert HEENT: PERRL, OC/OP NECK: Supple, no JVD, no LN LUNGS: Clear HEART: S1S2, no gallop, no murmur ABD: Soft, NT, no organomegaly, no rebound EXT: No edema, no cyanosis AXLE TURNER: Alert, oriented x 3, no focal neurologic deficit SKIN: No rash IV: ok Labs Lab Laboratory Tests Test 01/10/17 10:13 01/10/17 17:25 01/10/17 20:13 Glucose (Fingerstick) 209mg/dL (70-99) 179mg/dL (70-99) 167mg/dL (70-99) Objective Assessment N/V/D, gastroenteritis Leukocytosis Lactic acidosis/sepsis Dementia Encephalopathy ADELE Plan Plan of Care Zosyn vanc x 1, 01/08 UC in progress C. diff pcr neg change zosyn to po misaelin OLY CLARK MD Jan 11, 2017 09:24
[2017-01-11 10:41] VITALS: BP 135/69
[2017-01-11] MEDS: AMOXICILLIN/K CLAV 875/125MG TABLET. PO SCH ×2 (11:11→21:21)
[2017-01-11] MEDS: POTASSIUM CL 20MEQ D5-0.45NACL 1,000 ML IV SCH (13:08)
[2017-01-11 15:00] VITALS: BP 122/65
[2017-01-11 19:38] VITALS: BP 140/80
[2017-01-11] MEDS: ATORVASTATIN CALCIUM 10 MG TABLET. PO SCH (21:21)
[2017-01-11] MEDS: INSULIN DETEMIR 300 UNITS/3 ML INSULN.PEN. SQ SCH (21:25)
[2017-01-11 22:43] VITALS: BP 118/59
[2017-01-12] MEDS: POTASSIUM CL 20MEQ D5-0.45NACL 1,000 ML IV SCH (02:25)
[2017-01-12 03:00] VITALS: BP 166/92
[2017-01-12 07:15] VITALS: BP 152/75
[2017-01-12] MEDS: FINASTERIDE 5 MG TABLET PO SCH (07:59)
[2017-01-12] MEDS: MEMANTINE 10 MG TABLET. PO SCH (07:59)
[2017-01-12] MEDS: AMOXICILLIN/K CLAV 875/125MG TABLET. PO SCH (07:59)
[2017-01-12] MEDS: ASPIRIN 81 MG TAB.CHEW PO SCH (07:59)
[2017-01-12] MEDS: CETIRIZINE HCL 10 MG TABLET. PO SCH (07:59)
[2017-01-12] MEDS: METFORMIN 1,000 MG TABLET PO SCH (07:59)
[2017-01-12] MEDS: SERTRALINE 25 MG TABLET. PO SCH (08:02)
--- NOTE | 2017-01-12 08:05 | PDOC ---
GENERAL General: see discharge summary. Problems: VITAL SIGNS Vital Signs: Vital Signs Date Time Temp Pulse Resp B/P Pulse Ox O2 Delivery O2 Flow Rate FiO2 01/12/17 07:15 98.0 75 20 152/75 93 Room Air 98.0 01/11/17 20:00 4.0 I & O I & O Intake and Output 01/12/17 07:00 Intake Total 1480 ml Output Total 1 ml Balance 1479 ml Intake Oral 480 ml IV Total 1000 ml Stool Total 1 ml # Voids 3 # Bowel Movements 1 ALLERGIES Allergies: Allergies Coded Allergies Type Severity Reaction Last Updated Verified No Known Drug Allergies 10/21/14 No MEDS Medications: Current Medications Medications (Trade) Dose Ordered Sig/Christina Start Time Stop Time Status Last Admin Dose Admin Acetaminophen (Tylenol) 325 mg PRN Q4HRS PRN 01/08/17 17:45 Albuterol Sulfate (Ventolin Neb Soln) 2.5 mg PRN Q4HRS PRN 01/08/17 17:45 Albuterol/ Ipratropium 3 ml 3 ml 1X ONCE 01/08/17 09:45 01/08/17 09:46 DC 01/08/17 09:53 3 ML Amoxicillin/ Clavulanate Potassium (Augmentin 875/ 125mg) 1 tab BID 01/11/17 09:00 01/11/17 21:21 1 TAB Aspirin (Children'S Aspirin) 81 mg DAILY 01/09/17 09:00 01/11/17 08:35 81 MG Atorvastatin Calcium (Lipitor) 10 mg HS 01/08/17 21:00 01/11/17 21:21 10 MG Cetirizine HCl (Zyrtec) 10 mg DAILY 01/09/17 09:00 01/11/17 09:21 10 MG Clopidogrel Bisulfate (Plavix) 75 mg DAILY 01/09/17 09:00 01/09/17 12:08 DC 01/09/17 10:24 75 MG Dextrose 12.5 gm PRN Q15MIN PRN 01/08/17 17:45 Finasteride (Proscar) 5 mg DAILY 01/09/17 09:00 01/11/17 08:35 5 MG Insulin Aspart (Novolog) 0-5 UNITS TIDWMEALS 01/08/17 18:30 01/11/17 12:07 2 UNITS Insulin Detemir (Levemir) 4 units 1X ONCE 01/10/17 09:00 01/10/17 09:03 DC 01/10/17 12:45 4 UNITS Memantine 10 mg 10 mg BID 01/08/17 21:00 01/11/17 21:21 10 MG Metformin HCl (Glucophage) 1,000 mg BIDWMEALS 01/10/17 17:00 01/11/17 17:23 1,000 MG Ondansetron HCl 4 mg 4 mg PRN Q8HRS PRN 01/08/17 12:15 01/09/17 12:14 DC Piperacillin Sod/ Tazobactam Sod/ Sodium Chloride (Zosyn/Iv Sodium Chloride 0.9% 50ml) 50 ml @ 100 mls/hr Q6HRS 01/08/17 13:00 01/11/17 09:26 DC 01/11/17 05:51 100 MLS/HR Potassium Chloride/Dextrose/ Sod Cl (KCl 20 Meq In D5W-1/2 NS) 1,000 ml @ 75 mls/hr [id number] 01/09/17 12:30 01/12/17 02:25 75 MLS/HR Sertraline HCl (Zoloft) 25 mg DAILY 01/09/17 09:00 01/11/17 08:35 25 MG Sodium Chloride (Iv Sodium Chloride 0.9% 1000ml Bag) 1,000 ml @ 1,000 mls/hr 1X ONCE 01/08/17 10:15 01/08/17 11:14 DC 01/08/17 10:09 1,000 MLS/HR Vancomycin HCl 1.25 gm/Sodium Chloride 250 ml @ 166.667 mls/hr 1X ONCE 01/08/17 12:30 01/08/17 13:59 DC 01/08/17 14:48 166.667 MLS/HR LAB Lab: Laboratory Tests Test 01/11/17 08:33 01/11/17 11:13 01/11/17 16:24 01/11/17 20:18 Glucose (Fingerstick) 174mg/dL (70-99) 181mg/dL (70-99) 144mg/dL (70-99) 183mg/dL (70-99) Test 01/12/17 07:32 Glucose (Fingerstick) 181mg/dL (70-99) APPL,AYESHA Smith MD Jan 12, 2017 08:05
[2017-01-12] MEDS: INSULIN ASPART 300 UNITS/3 ML INSULN.PEN SQ SCH ×2 (08:41→12:14)
--- NOTE | 2017-01-12 08:57 | DS ---
DATE OF DISCHARGE: 01/12/2017 PRIMARY DIAGNOSIS: Sepsis. ADDITIONAL DIAGNOSES: Nausea, vomiting, diarrhea, lactic acidosis, leukocytosis, acute renal failure, encephalopathy, history of dementia, atherosclerotic heart disease, hypotension. CHIEF COMPLAINT AND HISTORY OF PRESENT ILLNESS: This 86-year-old white male, [facility] resident with mild dementia, had nausea, vomiting and diarrhea of 1-day duration. He became very weak, lethargic with change in mental status, had leukocytosis on admission with lactic acidosis with lactic acid up to 4.2, acute renal failure with BUN of 30, creatinine 1.7, was admitted with ID consult, IV antibiotics and culture. SUMMARY OF STAY: The patient improved on a daily basis. His acute renal failure resolved, white count drifted towards normal, mental status returned to normal. Lactic acidosis resolved. Blood pressures on oxygenation stabilized and cultures were essentially negative during the stay as far as his blood cultures. His urine grew out coagulase-negative staph. ID followed along and switched to p.o. Augmentin on the day prior to discharge and we will continue this for another week at the [facility]. It was felt he could be dismissed at this point in time. DISPOSITION: The patient is discharged back to [facility], regular diet. Activity as tolerated. Med rec has been completed and meds are addressed there. AYESHA BOWERS MD DR: ROGER/jose JOB#: [id number] / [id number]
--- NOTE | 2017-01-12 09:20 | PDOC ---
Infectious Disease Note Subjective Subjective feeling good, awake and appropriate ROS ROS GEN: Denies fevers, chills, sweats HEENT: Denies blurred vision, sore throat CV: Denies chest pain RESP: Denies shortness of air, cough GI: Denies n/v/d NEURO: Denies confusion, dizziness MSK: Denies weakness, joint pain/swelling Vital Sign Vital Signs Vital Signs Date Time Temp Pulse Resp B/P Pulse Ox O2 Delivery O2 Flow Rate FiO2 01/12/17 08:00 Nasal Cannula 01/12/17 07:15 98.0 75 20 152/75 93 98.0 01/11/17 20:00 4.0 Physical Exam PHYSICAL EXAM GENERAL: NAD, Alert HEENT: PERRL, OC/OP NECK: Supple, no JVD, no LN LUNGS: Clear HEART: S1S2, no gallop, no murmur ABD: Soft, NT, no organomegaly, no rebound EXT: No edema, no cyanosis CLEAT MAKER: Alert, oriented x 3, no focal neurologic deficit SKIN: No rash IV: ok Labs Lab Laboratory Tests Test 01/11/17 11:13 01/11/17 16:24 01/11/17 20:18 01/12/17 07:32 Glucose (Fingerstick) 181mg/dL (70-99) 144mg/dL (70-99) 183mg/dL (70-99) 181mg/dL (70-99) Objective Assessment N/V/D, gastroenteritis Leukocytosis Lactic acidosis/sepsis Dementia Encephalopathy ADELE UTI Plan Plan of Care po augmentin d/c to [facility] OLY Lewis MD Jan 12, 2017 09:20
[2017-01-12 11:13] VITALS: BP 130/71
== END 2017-01-12 13:25 | DRG 871 ==
LOC: ER 09:25 → 5 NORTH 11:30
PROVIDERS: ADMIT Family Medicine; ATTEND Family Medicine
DX: A41.9 Sepsis, unspecified organism (principal); G93.40 Encephalopathy, unspecified; E87.2 Acidosis; N17.9 Acute kidney failure, unspecified; I69.354 Hemiplegia and hemiparesis following cerebral infarction affecting left non-dominant side; N39.0 Urinary tract infection, site not specified; R65.10 Systemic inflammatory response syndrome (SIRS) of non-infectious origin without acute organ dysfunction; K52.9 Noninfective gastroenteritis and colitis, unspecified; E11.9 Type 2 diabetes mellitus without complications; E78.00 Pure hypercholesterolemia, unspecified; E78.5 Hyperlipidemia, unspecified; F03.90 Unspecified dementia, unspecified severity, without behavioral disturbance, psychotic disturbance, mood disturbance, and anxiety; I10 Essential (primary) hypertension; I25.10 Atherosclerotic heart disease of native coronary artery without angina pectoris; I70.0 Atherosclerosis of aorta; Z66 Do not resuscitate; F32.9 Major depressive disorder, single episode, unspecified; F41.9 Anxiety disorder, unspecified; Z79.4 Long term (current) use of insulin
CPT/HCPCS: 36415; 36600; 71010; 80048; 80053; 81001; 82553; 82805; 82947; 83036; 83605; 84484; 85007; 85027; 87040; 87086; 87186; 87324; 87641; 93005; 94640; 96360; 96361; J1815; J2543; J3370; J7030; J7050; J7620; 99285-25